=== PATIENT | male | born 1980 | race Caucasian/White ===

== ENCOUNTER → 2020-10-05 | Outpatient (CLI) | payer BC | LOC: KOH-I 16:02 | DX: J32.8 Other chronic sinusitis (principal) | CPT/HCPCS: 70486 ==

== ENCOUNTER → 2021-02-03 | Outpatient (CLI) | payer BC | LOC: HEART 5 10:25 | DX: R06.00 Dyspnea, unspecified (principal) | CPT/HCPCS: 94010 ==